=== PATIENT | female | born 1960 | race Caucasian/White ===

== ENCOUNTER 2020-03-04 12:19 | Emergency (ER) | payer BC, MEDICAID ==
[~2020-03-04] VITALS: Ht 165.1 cm; Wt 90.0 kg
[2020-03-04] MEDS ORDERED: NAPR-56 PO (13:29)
[2020-03-04 13:55] VITALS: BP 177/109
== END 2020-03-04 13:57 | disposition home or self-care (01) ==
LOC: ER 12:19
DX: R07.81 Pleurodynia (principal); M25.532 Pain in left wrist; J45.909 Unspecified asthma, uncomplicated; Z90.49 Acquired absence of other specified parts of digestive tract; Z98.890 Other specified postprocedural states; Z88.6 Allergy status to analgesic agent; Z88.8 Allergy status to other drugs, medicaments and biological substances
CPT/HCPCS: 29125; 71045; 73130; 99284

== ENCOUNTER 2023-04-28 15:14 | Inpatient (IN) | payer BC ==
[~2023-04-28] VITALS: Ht 165.1 cm; Wt 88.8 kg
[2023-04-28 16:27] LABS: BASOPHILS # (AUTO) 0.2 X10'3 (0-0.2); BASOPHILS % (AUTO) 0.8 % (0-1); EOSINOPHILS % (AUTO) 0.2 % (0-6); HEMATOCRIT 43.7 % (35.0-45.0); HEMOGLOBIN 14.6 g/dl (12.0-16.0); LYMPHOCYTES # (AUTO) 2.7 X10'3 (1.1-4.8); LYMPHOCYTES % (AUTO) 13.1 % (21-51); MEAN CORPUSCULAR HGB CONC 33.3 g/dL (33.0-36.5); MEAN PLATELET VOLUME 6.8 FL (7.4-10.4); MONOCYTES # (AUTO) 1.6 X10'3 (0-0.9); MONOCYTES % (AUTO) 7.7 % (2-12); NEUTROPHILS # (AUTO) 16.4 X10'3 (1.8-7.7); NEUTROPHILS % (AUTO) 78.2 % (42-75); PLATELET COUNT 344 X10'3 (140-440); RED BLOOD COUNT 4.86 X10'6 (4.20-5.60); RED CELL DISTRIBUTION WIDTH 13.6 % (11.5-14.5); WHITE BLOOD COUNT 20.9 X10'3 (4.5-11.0)
[2023-04-28 16:46] LABS: ALANINE AMINOTRANSFERASE 36 U/L (12-78); ALBUMIN 3.6 G/DL (3.4-5.0); ALBUMIN/GLOBULIN RATIO 0.8 (1.1-1.5); ALKALINE PHOSPHATASE 71 IU/L (46-116); AMYLASE 38 U/L (25-115); ANION GAP 8 (8-16); ASPARTATE AMINO TRANSFERASE 20 U/L (10-37); BILIRUBIN,TOTAL 1.1 MG/DL (0.1-1.0); BLOOD UREA NITROGEN 15 MG/DL (7-18); BUN/CREATININE RATIO 14.3 (10.0-20.0); CALCIUM 9.9 MG/DL (8.5-10.1); CHLORIDE 100 MMOL/L (99-107); CREATININE 1.05 MG/DL (0.40-0.90); GLUCOSE 107 MG/DL (70-104); LIPASE 90 U/L (73-393); POTASSIUM 3.3 MMOL/L (3.5-5.1); SODIUM 136 MMOL/L (135-145); TOTAL CARBON DIOXIDE 27.6 MMOL/L (24-32); eCRCL 49 ML/MIN; eGFR 53 ML/MIN
[2023-04-28] MEDS ORDERED: ketorolac trometh. 30mg/ml inj. IV ONE (18:30)
[2023-04-28] MEDS ORDERED: normal saline 1000ML IV soln IVB ONE (18:30)
[2023-04-28] MEDS ORDERED: potassium Cl 20 mEq SR tablet PO STA (19:10)
[2023-04-28 21:28] LABS: BILIRUBIN,URINE NEGATIVE (Neg); CLARITY,URINE SLIGHTLY CLOUDY (Clear); COLOR,URINE YELLOW (Yellow); GLUCOSE, URINE NEGATIVE (Neg); KETONES,URINE TRACE mg/dl (Neg); LEUKOCYTE ESTERASE ,URINE SMALL (Neg); NITRITES, URINE NEGATIVE (Neg); OCCULT BLOOD,URINE NEGATIVE (Neg); PROTEIN,URINE NEGATIVE (Neg); UROBILINOGEN,URINE 0.2 E.U/dL (0.2-1.0)
[2023-04-28 21:29] LABS: UA COLLECTION TYPE CLN CATCH MIDSTREAM
[2023-04-28 21:34] LABS: WBC,URINE 20-30 /HPF (0-4)
[2023-04-28 21:35] LABS: BACTERIA,URINE 1+ /HPF (Neg); MUCUS STRANDS FEW /LPF (Neg); RBC,URINE 0-2 /HPF (0-2); SQUAMOUS EPITHELIAL CELL,UR FEW /LPF (FEW)
[2023-04-28 21:36] LABS: WBC CLUMPS,URINE FEW /HPF (NEGATIVE)
[2023-04-28 22:01] LABS: PROTHROMBIN TIME 10.4 SECONDS (9.0-12.0)
[2023-04-28] MEDS ORDERED: diphenhydrAMINE 25mg capsule PO PRN (22:55)
[2023-04-28] MEDS ORDERED: mag hydrox/Alum hydrox/simeth 30ml oral suspension PO PRN (22:55)
[2023-04-28] MEDS ORDERED: acetaminophen 325mg tablet PO PRN ×2 (22:55)
[2023-04-28] MEDS ORDERED: acetaminophen 650mg rectal suppository RC PRN (22:55)
[2023-04-28] MEDS ORDERED: magnesium Cl slow-release 64mg tablet PO PRN (22:55)
[2023-04-28] MEDS ORDERED: HYDROmorphone inj. 0.5 MG/0.5 ML DISP.SYRIN IV PRN (22:55)
[2023-04-28] MEDS ORDERED: bisacodyl 10mg suppository rectal RC PRN (22:55)
[2023-04-28] MEDS ORDERED: potassium Cl 40MEQ/1/2NS 520ml 520 ML IV PRN (22:55)
[2023-04-28] MEDS ORDERED: magnesium 4gm in 100ml NS 100 ML IV PRN (22:55)
[2023-04-28] MEDS ORDERED: potassium Cl 20 mEq SR tablet PO PRN ×2 (22:55)
[2023-04-28] MEDS ORDERED: magnesium 2GM in 50ml NS 50 ML IV PRN (22:55)
[2023-04-28] MEDS ORDERED: morphine 2 MG/ML inj. syringe IV PRN (22:55)
[2023-04-28] MEDS ORDERED: magnesium hydroxide 30ml (MOM) UD suspension PO PRN (22:55)
[2023-04-28] MEDS ORDERED: ondansetron 4mg rapidly disintigrating tab PO PRN (22:55)
[2023-04-28] MEDS ORDERED: diphenhydrAMINE 50 mg/ml inj IV PRN (22:55)
[2023-04-28 23:27] LABS: CREATINE KINASE 71 U/L (26-192); MAGNESIUM 2.2 MG/DL (1.5-2.4); PHOSPHORUS 2.7 MG/DL (2.3-4.5); PRO BRAIN NATRIURETIC PEPTIDE 75 PG/ML (0-125); THYROID STIMULATING HORMONE 0.84 ulU/ml (0.34-4.50)
[2023-04-28] MEDS: normal saline 1000ml 1,000 ML IV SCH (23:31)
[2023-04-28 23:46] LABS: HEMOGLOBIN A1C 6.4 % (4.5-6.2)
[2023-04-28 23:47] LABS: APTT 30 SECONDS (22-32)
[2023-04-29] MEDS: potassium Cl 20mEq in NS 1,000 ML IV SCH ×3 (00:25→21:33)
[2023-04-29] MEDS: piperacillin/tazo 4.5gm/100ml 100 ML IV SCH ×4 (00:25→23:53)
[2023-04-29 05:09] LABS: ALANINE AMINOTRANSFERASE 29 U/L (12-78); ALBUMIN/GLOBULIN RATIO 0.8 (1.1-1.5); ALKALINE PHOSPHATASE 59 IU/L (46-116); ANION GAP 6 (8-16); ASPARTATE AMINO TRANSFERASE 15 U/L (10-37); BLOOD UREA NITROGEN 16 MG/DL (7-18); BUN/CREATININE RATIO 14.7 (10.0-20.0); CALCIUM 9.1 MG/DL (8.5-10.1); CHLORIDE 105 MMOL/L (99-107); CHOL/HDL RATIO 2.8 (0.00-4.99); CHOLESTEROL 144 MG/DL (0-200); CREATININE 1.09 MG/DL (0.40-0.90); GLUCOSE 116 MG/DL (70-104); HDL CHOLESTEROL 51 MG/DL (35-60); LDL CHOLESTEROL 73 MG/DL (50-100); MAGNESIUM 2.2 MG/DL (1.5-2.4); POTASSIUM 4.2 MMOL/L (3.5-5.1); SODIUM 138 MMOL/L (135-145); TOTAL CARBON DIOXIDE 26.6 MMOL/L (24-32); TOTAL PROTEIN 6.9 G/DL (6.4-8.2); TRIGLYCERIDES 130 MG/DL (20-135); eCRCL 48 ML/MIN; eGFR 51 ML/MIN
[2023-04-29 05:19] LABS: BASOPHILS % (AUTO) 0.1 % (0-1); EOSINOPHILS # (AUTO) 0.1 X10'3 (0-0.9); EOSINOPHILS % (AUTO) 0.5 % (0-6); HEMATOCRIT 38.9 % (35.0-45.0); HEMOGLOBIN 12.8 g/dl (12.0-16.0); LYMPHOCYTES # (AUTO) 1.7 X10'3 (1.1-4.8); LYMPHOCYTES % (AUTO) 10.6 % (21-51); MEAN CORPUSCULAR HEMOGLOBIN 29.7 PG (27.0-31.0); MEAN CORPUSCULAR HGB CONC 32.8 g/dL (33.0-36.5); MEAN CORPUSCULAR VOLUME 90.5 FL (78-98); MEAN PLATELET VOLUME 6.6 FL (7.4-10.4); MONOCYTES # (AUTO) 1.5 X10'3 (0-0.9); MONOCYTES % (AUTO) 9.3 % (2-12); NEUTROPHILS # (AUTO) 12.8 X10'3 (1.8-7.7); NEUTROPHILS % (AUTO) 79.5 % (42-75); PLATELET COUNT 285 X10'3 (140-440); WHITE BLOOD COUNT 16.1 X10'3 (4.5-11.0)
[2023-04-29] MEDS: morphine 2 MG/ML inj. syringe IV PRN ×3 (06:55→19:19)
[2023-04-29] MEDS: pantoprazole 40MG/NS 100ML BAG 100 ML IV SCH (07:59)
[2023-04-29] MEDS: docusate sod 100mg capsule PO SCH ×2 (08:00→21:33)
[2023-04-29] MEDS: K and/or MAG REPLACEMENT MC SCH ×2 (08:00→20:00)
[2023-04-29] MEDS: normal saline 1000ml 1,000 ML IV SCH ×2 (09:32→21:33)
[2023-04-29] MEDS ORDERED: LOSA50TA64 PO (09:58)
[2023-04-29] MEDS ORDERED: METH-798 PO (09:58)
[2023-04-29] MEDS ORDERED: METF-436 PO (09:58)
[2023-04-29] MEDS ORDERED: DICY20TA14 PO (09:58)
[2023-04-29] MEDS ORDERED: PANT40TA54 PO (09:58)
[2023-04-29] MEDS ORDERED: SIMV-45 PO (09:58)
[2023-04-29] MEDS ORDERED: HYDR25TA4 PO (09:58)
--- NOTE | 2023-04-29 16:54 | NUR ---
Pagehilary Zhu MD for status update on NPO order
[2023-04-29 20:10] VITALS: BP 156/78; PULSE 93; RESP 19; TEMP 98.3; O2SAT 96
--- NOTE | 2023-04-29 20:10 | NUR ---
Arrived from ER via gurney to rm 4013a oriented to room and call light, got pt belongings settled on bedside table.
[2023-04-29] MEDS ORDERED: ALBU8HFA PO (21:45)
[2023-04-29 22:00] VITALS: BP 142/80; PULSE 95; RESP 14; TEMP 98.8; O2SAT 95
--- NOTE | 2023-04-29 22:21 | NUR ---
requested Dr. Hutchins to reconcile medications so patient could take her blood pressure medicines. pt states she take robaxin for esophageal spasms. flexaril does not work. informed pt she will have to bring RX bottle from home to have pharmacy distribute.
[2023-04-29] MEDS ORDERED: METHOCARBAMOL 750 MG PO PRN (23:25)
[2023-04-29] MEDS ORDERED: albuterol 2.5 MG/3 ML nebule NEB PRN (23:25)
[2023-04-29] MEDS ORDERED: dicyclomine 10 MG capsule PO SCH (23:32)
[2023-04-29] MEDS: atorvastatin 20mg tablet PO SCH (23:38)
[2023-04-30] MEDS: potassium Cl 20mEq in NS 1,000 ML IV SCH ×2 (04:55→14:55)
[2023-04-30] MEDS: normal saline 1000ml 1,000 ML IV SCH ×3 (04:55→21:06)
[2023-04-30] MEDS: HYDROcodone/acetaminophen 10/325mg tab PO PRN ×2 (05:31→12:47)
[2023-04-30 06:00] VITALS: BP 129/74; PULSE 88; RESP 18; TEMP 98.8; O2SAT 94
--- NOTE | 2023-04-30 06:27 | NUR ---
reported to days. noted pt ambulatory. CL diet.
[2023-04-30 06:30] LABS: BASOPHILS % (AUTO) 0.1 % (0-1); EOSINOPHILS # (AUTO) 0.1 X10'3 (0-0.9); HEMATOCRIT 37.5 % (35.0-45.0); HEMOGLOBIN 12.4 g/dl (12.0-16.0); LYMPHOCYTES # (AUTO) 1.8 X10'3 (1.1-4.8); LYMPHOCYTES % (AUTO) 13.4 % (21-51); MEAN CORPUSCULAR HEMOGLOBIN 29.7 PG (27.0-31.0); MEAN CORPUSCULAR HGB CONC 33.1 g/dL (33.0-36.5); MEAN CORPUSCULAR VOLUME 89.9 FL (78-98); MEAN PLATELET VOLUME 6.8 FL (7.4-10.4); MONOCYTES # (AUTO) 1.1 X10'3 (0-0.9); MONOCYTES % (AUTO) 8.4 % (2-12); NEUTROPHILS # (AUTO) 10.5 X10'3 (1.8-7.7); NEUTROPHILS % (AUTO) 77.1 % (42-75); PLATELET COUNT 295 X10'3 (140-440); RED BLOOD COUNT 4.16 X10'6 (4.20-5.60); RED CELL DISTRIBUTION WIDTH 13.7 % (11.5-14.5); WHITE BLOOD COUNT 13.6 X10'3 (4.5-11.0)
--- NOTE | 2023-04-30 06:39 | NUR ---
I have received report from RN and had the opportunity to ask questions and assume patient care. No distress at this time.
[2023-04-30 06:52] LABS: ALANINE AMINOTRANSFERASE 26 U/L (12-78); ALBUMIN 2.6 G/DL (3.4-5.0); ALBUMIN/GLOBULIN RATIO 0.7 (1.1-1.5); ALKALINE PHOSPHATASE 83 IU/L (46-116); ANION GAP 10 (8-16); ASPARTATE AMINO TRANSFERASE 17 U/L (10-37); BILIRUBIN,TOTAL 0.7 MG/DL (0.1-1.0); BLOOD UREA NITROGEN 12 MG/DL (7-18); BUN/CREATININE RATIO 13.2 (10.0-20.0); CALCIUM 8.5 MG/DL (8.5-10.1); CHLORIDE 106 MMOL/L (99-107); CREATININE 0.91 MG/DL (0.40-0.90); GLUCOSE 84 MG/DL (70-104); MAGNESIUM 2.1 MG/DL (1.5-2.4); POTASSIUM 3.7 MMOL/L (3.5-5.1); SODIUM 138 MMOL/L (135-145); TOTAL CARBON DIOXIDE 21.8 MMOL/L (24-32); TOTAL PROTEIN 6.6 G/DL (6.4-8.2); eCRCL 57 ML/MIN; eGFR 62 ML/MIN
[2023-04-30] MEDS: pantoprazole 40MG/NS 100ML BAG 100 ML IV SCH (07:34)
[2023-04-30] MEDS: piperacillin/tazo 4.5gm/100ml 100 ML IV SCH ×3 (07:37→23:38)
[2023-04-30] MEDS: K and/or MAG REPLACEMENT MC SCH ×2 (07:42→20:00)
[2023-04-30] MEDS: pantoprazole 40mg Tablet.DR PO SCH (07:55)
[2023-04-30] MEDS: docusate sod 100mg capsule PO SCH ×2 (07:55→20:00)
[2023-04-30] MEDS: losartan 50mg tablet PO SCH (07:55)
[2023-04-30] MEDS: dicyclomine 10 MG capsule PO SCH ×4 (07:55→21:05)
[2023-04-30 08:00] VITALS: RESP 16; O2SAT 99
[2023-04-30 10:00] VITALS: BP 122/67; PULSE 75; RESP 16; TEMP 98.2; O2SAT 96
--- NOTE | 2023-04-30 16:21 | NUR ---
Diverticulitis/Diverticulosis consult: Pt seen at bedside accompanied by 4 family members for low fiber nutrition education. Provided written/verbal low fiber diet education and answered several questions asked by family. Written handouts left at bedside with RD contact information and encouraged pt/pt's family to reach out for any nutrition questions or concerns. Addendum: 04/30/23 at [address] Amended: Links added.
[2023-04-30] MEDS: HYDROcodone/acetaminophen 5mg/325mg tablet PO PRN ×2 (17:58→22:57)
[2023-04-30 18:00] VITALS: BP 130/93; PULSE 72; RESP 16; TEMP 98; O2SAT 97
--- NOTE | 2023-04-30 18:53 | NUR ---
Problems reprioritized. Patient report given, questions answered & plan of care reviewed with DENA Montgomery.
--- NOTE | 2023-04-30 21:00 | NUR ---
Pt requesting Robaxin, a medication she had brought in during admission that was taken to pharmacy. Pt states she will not be able to eat when her diet is advanced beyond liquids unless she has this medication. Medication noted to be on [facility], but not available in [facility] to dispense. Spoke to pharmacy staff, and per staff, they cannot dispense the medication currently as they do not have adequate information about the origin of this patients medication from home; the medication was brought to pharmacy unlabeled, in a supplement bottle. Pharmacy states they need the original bottle dispensed from the patients home pharmacy with the home pharmacies info and medication directions. Once this is available, they stated they would be able to dispense the medication. Relayed this info to the patient, and she states that she has contacted her daughter to bring in the medication in question as desired by [facility] pharmacy staff tomorrow 05/01.
[2023-04-30] MEDS: atorvastatin 20mg tablet PO SCH (21:05)
[2023-04-30 22:00] VITALS: BP 144/90; PULSE 75; RESP 18; TEMP 97.8; O2SAT 96
[2023-05-01] MEDS: HYDROcodone/acetaminophen 5mg/325mg tablet PO PRN ×4 (03:24→17:25)
--- NOTE | 2023-05-01 05:37 | NUR ---
I agree with COMMERCIAL KITCHEN SERVICE TECHNICIAN physical assessment
[2023-05-01 06:00] VITALS: BP 128/76; PULSE 75; RESP 16; TEMP 98.3; O2SAT 95
[2023-05-01] MEDS: potassium Cl 20mEq in NS 1,000 ML IV SCH ×3 (06:00→16:21)
[2023-05-01 06:41] LABS: BASOPHILS # (AUTO) 0.1 X10'3 (0-0.2); MEAN PLATELET VOLUME 7.1 FL (7.4-10.4)
[2023-05-01 06:44] LABS: BASOPHILS % (AUTO) 0.4 % (0-1); EOSINOPHILS # (AUTO) 0.2 X10'3 (0-0.9); EOSINOPHILS % (AUTO) 1.8 % (0-6); HEMATOCRIT 36.1 % (35.0-45.0); HEMOGLOBIN 11.9 g/dl (12.0-16.0); LYMPHOCYTES # (AUTO) 1.6 X10'3 (1.1-4.8); LYMPHOCYTES % (AUTO) 13.8 % (21-51); MEAN CORPUSCULAR HEMOGLOBIN 29.7 PG (27.0-31.0); MEAN CORPUSCULAR HGB CONC 32.9 g/dL (33.0-36.5); MEAN CORPUSCULAR VOLUME 90.1 FL (78-98); MONOCYTES % (AUTO) 8.6 % (2-12); NEUTROPHILS # (AUTO) 8.7 X10'3 (1.8-7.7); NEUTROPHILS % (AUTO) 75.4 % (42-75); PLATELET COUNT 295 X10'3 (140-440); RED BLOOD COUNT 4.01 X10'6 (4.20-5.60); RED CELL DISTRIBUTION WIDTH 13.4 % (11.5-14.5); WHITE BLOOD COUNT 11.5 X10'3 (4.5-11.0)
[2023-05-01] MEDS: pantoprazole 40MG/NS 100ML BAG 100 ML IV SCH (07:05)
[2023-05-01] MEDS: pantoprazole 40mg Tablet.DR PO SCH (07:09)
[2023-05-01] MEDS: dicyclomine 10 MG capsule PO SCH ×4 (07:11→20:57)
[2023-05-01] MEDS: losartan 50mg tablet PO SCH (07:11)
[2023-05-01] MEDS: docusate sod 100mg capsule PO SCH ×2 (07:12→20:00)
[2023-05-01 07:21] LABS: ALANINE AMINOTRANSFERASE 29 U/L (12-78); ALBUMIN 2.5 G/DL (3.4-5.0); ALBUMIN/GLOBULIN RATIO 0.6 (1.1-1.5); ALKALINE PHOSPHATASE 85 IU/L (46-116); ANION GAP 10 (8-16); ASPARTATE AMINO TRANSFERASE 21 U/L (10-37); BILIRUBIN,TOTAL 0.5 MG/DL (0.1-1.0); BLOOD UREA NITROGEN 6 MG/DL (7-18); BUN/CREATININE RATIO 6.5 (10.0-20.0); CALCIUM 8.8 MG/DL (8.5-10.1); CHLORIDE 108 MMOL/L (99-107); CREATININE 0.93 MG/DL (0.40-0.90); GLUCOSE 103 MG/DL (70-104); MAGNESIUM 2.1 MG/DL (1.5-2.4); POTASSIUM 3.9 MMOL/L (3.5-5.1); SODIUM 141 MMOL/L (135-145); TOTAL CARBON DIOXIDE 22.7 MMOL/L (24-32); TOTAL PROTEIN 6.6 G/DL (6.4-8.2); eCRCL 56 ML/MIN; eGFR 61 ML/MIN
[2023-05-01] MEDS: piperacillin/tazo 4.5gm/100ml 100 ML IV SCH ×2 (07:39→16:11)
[2023-05-01 08:00] VITALS: RESP 18; O2SAT 95
[2023-05-01] MEDS: K and/or MAG REPLACEMENT MC SCH ×2 (08:19→20:00)
[2023-05-01 10:00] VITALS: BP 133/81; PULSE 77; RESP 16; TEMP 98.4; O2SAT 97
[2023-05-01] MEDS: normal saline 1000ml 1,000 ML IV SCH ×2 (10:55→20:55)
--- NOTE | 2023-05-01 14:50 | NUR ---
TECHNICAL DIRECTOR documentation: I have reviewed and agree with all interventions, assessments performed and documented by Rula iBanchi LVN .
[2023-05-01 18:00] VITALS: BP 140/84; PULSE 83; RESP 17; TEMP 97.9; O2SAT 94
[2023-05-01 20:00] VITALS: RESP 17; O2SAT 94
[2023-05-01] MEDS: atorvastatin 20mg tablet PO SCH (20:57)
[2023-05-01 22:00] VITALS: BP 149/90; PULSE 75; RESP 16; TEMP 98.3; O2SAT 97
[2023-05-02] MEDS: piperacillin/tazo 4.5gm/100ml 100 ML IV SCH ×2 (00:40→07:11)
[2023-05-02] MEDS: potassium Cl 20mEq in NS 1,000 ML IV SCH ×2 (00:41→12:16)
--- NOTE | 2023-05-02 06:40 | NUR ---
Patient in room [facility]TH[facility] 4013. I have received report from BUTCH KHANNA and had the opportunity to ask questions and assume patient care.
[2023-05-02 06:52] VITALS: BP 156/90; PULSE 80; RESP 16; TEMP 97.8; O2SAT 95
[2023-05-02] MEDS: normal saline 1000ml 1,000 ML IV SCH (07:11)
[2023-05-02] MEDS: pantoprazole 40MG/NS 100ML BAG 100 ML IV SCH (07:11)
[2023-05-02] MEDS: ondansetron/PF 4mg/2ml inj IV PRN ×2 (07:11→13:19)
[2023-05-02] MEDS: HYDROcodone/acetaminophen 10/325mg tab PO PRN ×2 (07:12→13:19)
[2023-05-02] MEDS: docusate sod 100mg capsule PO SCH (07:12)
[2023-05-02] MEDS: pantoprazole 40mg Tablet.DR PO SCH (07:12)
[2023-05-02] MEDS: dicyclomine 10 MG capsule PO SCH (07:13)
[2023-05-02] MEDS: losartan 50mg tablet PO SCH (07:13)
[2023-05-02 07:18] LABS: BASOPHILS % (AUTO) 0.3 % (0-1); EOSINOPHILS # (AUTO) 0.2 X10'3 (0-0.9); EOSINOPHILS % (AUTO) 1.5 % (0-6); HEMATOCRIT 38.3 % (35.0-45.0); HEMOGLOBIN 12.7 g/dl (12.0-16.0); LYMPHOCYTES # (AUTO) 1.6 X10'3 (1.1-4.8); MEAN CORPUSCULAR HEMOGLOBIN 29.5 PG (27.0-31.0); MEAN CORPUSCULAR HGB CONC 33.1 g/dL (33.0-36.5); MEAN CORPUSCULAR VOLUME 89.2 FL (78-98); MEAN PLATELET VOLUME 6.8 FL (7.4-10.4); MONOCYTES # (AUTO) 0.9 X10'3 (0-0.9); MONOCYTES % (AUTO) 7.8 % (2-12); NEUTROPHILS # (AUTO) 8.5 X10'3 (1.8-7.7); NEUTROPHILS % (AUTO) 76.4 % (42-75); PLATELET COUNT 329 X10'3 (140-440); RED BLOOD COUNT 4.29 X10'6 (4.20-5.60); RED CELL DISTRIBUTION WIDTH 13.4 % (11.5-14.5); WHITE BLOOD COUNT 11.2 X10'3 (4.5-11.0)
[2023-05-02 07:35] LABS: ALANINE AMINOTRANSFERASE 43 U/L (12-78); ALBUMIN 2.8 G/DL (3.4-5.0); ALBUMIN/GLOBULIN RATIO 0.6 (1.1-1.5); ALKALINE PHOSPHATASE 98 IU/L (46-116); ANION GAP 8 (8-16); ASPARTATE AMINO TRANSFERASE 29 U/L (10-37); BILIRUBIN,TOTAL 0.4 MG/DL (0.1-1.0); BLOOD UREA NITROGEN 4 MG/DL (7-18); BUN/CREATININE RATIO 4.4 (10.0-20.0); CALCIUM 9.1 MG/DL (8.5-10.1); CHLORIDE 107 MMOL/L (99-107); CREATININE 0.91 MG/DL (0.40-0.90); GLUCOSE 109 MG/DL (70-104); POTASSIUM 3.8 MMOL/L (3.5-5.1); SODIUM 140 MMOL/L (135-145); TOTAL CARBON DIOXIDE 25.2 MMOL/L (24-32); TOTAL PROTEIN 7.3 G/DL (6.4-8.2); eCRCL 57 ML/MIN; eGFR 62 ML/MIN
[2023-05-02] MEDS: K and/or MAG REPLACEMENT MC SCH (08:00)
[2023-05-02 10:54] VITALS: BP 130/80; PULSE 73; RESP 16; TEMP 98.1; O2SAT 96
[2023-05-02 11:13] VITALS: RESP 16; O2SAT 96
[2023-05-02] MEDS ORDERED: CIPR-259 PO (12:32)
[2023-05-02] MEDS ORDERED: METR-159 PO (12:32)
[2023-05-02] MEDS ORDERED: ONDA4TAB12 PO (12:34)
[2023-05-02] MEDS ORDERED: ACET-1008 PO (12:34)
[2023-05-02] MEDS ORDERED: dicyclomine 10 MG capsule PO SCH (13:00)
[2023-05-02 13:19] VITALS: RESP 16
--- NOTE | 2023-05-02 14:25 | NUR ---
PT. ALERT AND STABLE ON DISCHARGE. IV CANNULA WHOLE AND INTACT UPON REMOVAL. PT. EDUCATED TO FOLLOW UP WITH PRIMARY CARE PROVIDER IN 1 WEEK AND TO ADVANCE FULL LIQUID DIET TOLERATED IN 3 DAYS. PT. EDUCATED ON NEW MEDICATIONS AND ANTIBIOTICS. PT. ESCORTED SAFELY INTO PRIVATE VEHICLE WITH FAMILY. PT. LEFT WITH ALL BELONGINGS.
[2023-05-02] MEDS ORDERED: metroNIDAZOLE-Flagyl 500mg/NS 100 ML IV SCH (20:00)
[2023-05-02] MEDS ORDERED: ciprofloxacin lact 400MG/200ML 200 ML IV SCH (20:00)
== END 2023-05-02 13:30 | disposition home or self-care (01) | DRG 392 ==
LOC: ER 15:14 → ED HOLD 23:01 → EDBEDREQ 04-29 19:19 → ORTHO 4S 04-29 20:00
PROVIDERS: ADMIT Family Medicine; ATTEND Family Medicine
DX: K52.9 Noninfective gastroenteritis and colitis, unspecified (principal); K57.32 Diverticulitis of large intestine without perforation or abscess without bleeding; N17.9 Acute kidney failure, unspecified; N39.0 Urinary tract infection, site not specified; K80.10 Calculus of gallbladder with chronic cholecystitis without obstruction; J45.909 Unspecified asthma, uncomplicated; E87.6 Hypokalemia; E86.0 Dehydration; I12.9 Hypertensive chronic kidney disease with stage 1 through stage 4 chronic kidney disease, or unspecified chronic kidney disease; N18.9 Chronic kidney disease, unspecified; R16.0 Hepatomegaly, not elsewhere classified; N20.0 Calculus of kidney; G89.4 Chronic pain syndrome; E78.5 Hyperlipidemia, unspecified; K76.0 Fatty (change of) liver, not elsewhere classified; K21.9 Gastro-esophageal reflux disease without esophagitis; Z90.49 Acquired absence of other specified parts of digestive tract; Z88.6 Allergy status to analgesic agent
CPT/HCPCS: 36415; 71045; 74176; 76700; 80053; 80061; 81001; 82150; 82550; 83036; 83605; 83690; 83735; 83880; 84100; 84145; 84443; 85025; 85610; 85730; 87040; 87081; 87088; 93005; 99285; C9113; G0378; J1885; J2270; J2405; J2543; J3480; J7030